=== PATIENT | female | born 2005 | race Caucasian/White ===

== ENCOUNTER 2024-02-22 12:22 | Emergency (ER) | payer MEDICAID ==
[~2024-02-22] VITALS: Ht 170.2 cm; Wt 57.3 kg
[2024-02-22 12:59] VITALS: BP 108/67
== END 2024-02-22 13:03 | disposition home or self-care (01) ==
LOC: ED 12:22
DX: J39.9 Disease of upper respiratory tract, unspecified (principal)

== ENCOUNTER → 2024-05-07 | Outpatient (CLI) | payer MEDICAID ==
[2024-05-07 12:05] LABS: BASO # 0.02 K/mm3 (0.02-0.10); EOS # 0.15 K/mm3 (0.04-0.40); HEMATOCRIT 42.3 % (35.0-45.0); HEMOGLOBIN 13.6 g/dL (12.0-15.0); LYMPH# 1.82 K/mm3 (1.20-3.40); MEAN CELL VOLUME 88 fl (78-95); MEAN CORPUSCULAR HEMOGLOBIN 28 pg (26-32); MEAN CORPUSCULAR HGB CONC 32 g/dL (33-37); MEAN PLATELET VOLUME 10.4 fl (7.4-10.4); MONO # 0.74 K/mm3 (0.10-0.60); NEU # 4.82 K/mm3 (1.40-6.50); PLATELET COUNT 301 K/mm3 (130-400); RED BLOOD COUNT 4.81 M/mm3 (4.10-5.30); RED CELL DISTRIBUTION WIDTH 12.4 % (11.5-14.5); WHITE BLOOD COUNT 7.6 K/mm3 (4.8-10.8)
== END ==
LOC: LAB 11:51
PROVIDERS: Nurse Practitioner Family
DX: R42 Dizziness and giddiness (principal); R11.0 Nausea

== ENCOUNTER → 2024-06-17 | Outpatient (CLI) | payer MEDICAID ==
[2024-06-17 15:56] LABS: ALBUMIN 4.2 g/dL (3.5-5.0); SODIUM 142 mmol/L (136-145)
[2024-06-17 15:57] LABS: CALCIUM 9.1 mg/dL (8.3-10.5)
[2024-06-17 15:58] LABS: GLUCOSE 75 mg/dL (65-105)
[2024-06-17 15:59] LABS: CARBON DIOXIDE 24 mmol/L (22-29); TOTAL PROTEIN 7.5 g/dL (6.4-8.3)
[2024-06-17 16:00] LABS: TOTAL BILIRUBIN 0.2 mg/dL (0.2-1.2)
[2024-06-17 16:04] LABS: AST-SGOT 11 U/L (5-34)
[2024-06-17 16:05] LABS: ALT/SGPT 10 U/L (0-55)
== END ==
LOC: LAB 15:03
PROVIDERS: Nurse Practitioner
DX: N91.1 Secondary amenorrhea (principal)

== ENCOUNTER → 2024-08-12 | Outpatient (CLI) | payer MEDICAID | LOC: LAB 12:03 | DX: Z76.89 Persons encountering health services in other specified circumstances (principal) ==